=== PATIENT | female | born 1980 | race Caucasian/White ===

== ENCOUNTER 2019-12-04 21:28 | Emergency (ER) | payer OTHER ==
[2019-12-04 21:54] VITALS: BMI 29.2
[2019-12-04] MEDS ORDERED: DEXAMETHASONE LIQUID 0.5 MG/5 ML PO ONE (23:04)
[2019-12-04] MEDS ORDERED: KETOROLAC TROMETHAMINE 30 MG/1 ML VIAL IM ONE (23:04)
--- NOTE | 2019-12-04 23:13 | PDOC ---
History of Present Illness - General Chief Complaint: Cold Symptoms Stated Complaint: FEVER Time Seen by Provider: 12/04/19 23:05 History Source: Patient Exam Limitations: No Limitations - History of Present Illness Initial Comments: 12/04/19 23:06 Patient is a 39 year old female with h/o hypothyoid, HTN c/o sorethroat and fever since yesterday. States the pain is sharp 10/10 worse with swallowing. She took tylneol at 8:30 pm without relief. (+) Coughing with is nonproductive has pain in the back when she coughs. Fever is subjective. No recent travel, no sick contacts. PMD: Dr. Ramos PMHX as above PSOCHX: neg cig, neg etoh, neg drug Fam Hx: noncontributory ALL: NKDA GENERAL/CONSTITUTIONAL: [(+) fever or chills. No weakness. No weight change.] HEAD, EYES, EARS, NOSE AND THROAT: [No change in vision. No ear pain or discharge. No sore throat.] CARDIOVASCULAR: [(+) chest pain (-) shortness of breath.] RESPIRATORY: [(+) cough, (-) wheezing, or hemoptysis.] GASTROINTESTINAL: [No nausea, vomiting, diarrhea or constipation. No rectal bleeding.] GENITOURINARY: [No dysuria, frequency, or change in urination.] MUSCULOSKELETAL: [No joint or muscle swelling or pain. No neck or back pain.] SKIN AND BREASTS: [No rash or easy bruising.] NEUROLOGIC: [No headache, vertigo, loss of consciousness, or loss of sensation.] PSYCHIATRIC: [No depression or anxiety.] ENDOCRINE: [No increased thirst. No abnormal weight change.] HEMATOLOGIC/LYMPHATIC: [No anemia, easy bleeding, or history of blood clots.] ALLERGIC/IMMUNOLOGIC: [No hives or skin allergy. No latex allergy.] GENERAL: [The patient is awake, alert, and fully oriented, in no acute distress.] HEAD: [Normal with no signs of trauma.] EYES: [Pupils equal, round and reactive to light, extraocular movements intact, sclera anicteric, conjunctiva clear.] ENT: [Ears normal, nares patent, no erythema oropharynx clear without exudates. Moist mucous membranes.] NECK: [Normal range of motion, supple without lymphadenopathy, JVD, or masses.] LUNGS: [Breath sounds equal, clear to auscultation bilaterally. No wheezes, and no crackles.] HEART: [Regular rate and rhythm, normal S1 and S2 without murmur, rub.] ABDOMEN: [Soft, nontender, normoactive bowel sounds. No guarding, no rebound. No masses.] EXTREMITIES: [Normal range of motion, no edema. No clubbing or cyanosis. No cords, erythema, or tenderness.] NEUROLOGICAL: [Cranial nerves II through XII grossly intact. Normal speech, normal gait.] PSYCH: [Normal mood, normal affect.] SKIN: [Warm, Dry, normal turgor, no rashes or lesions noted.] Past History - Past Medical History Allergies/Adverse Reactions: Allergies Allergy/AdvReac Type Severity Reaction Status Date / Time No Known Allergies Allergy Verified 12/04/19 21:54 Home Medications: Ambulatory Orders Azithromycin [Zithromax -] 250 mg PO DAILY #4 tablet 12/05/19 COPD: No HTN: Yes - Psycho Social/Smoking Cessation Hx Smoking History: Never smoked Have you smoked in the past 12 months: No Information on smoking cessation initiated: No Hx Alcohol Use: No Drug/Substance Use Hx: No *Physical Exam - Vital Signs Last Vital Signs Temp Pulse Resp BP Pulse Ox 98.1 F 89 18 109/67 100 12/04/19 21:51 12/04/19 21:51 12/04/19 21:51 12/04/19 21:51 12/04/19 21:51 Medical Decision Making - Medical Decision Making 12/04/19 23:06 Patient is a 39 year old female with h/o hypothyoid, HTN c/o sorethroat and fever since yesterday. States the pain is sharp 10/10 worse with swallowing. She took tylneol at 8:30 pm without relief. (+) Coughing which is nonproductive has pain in the back when she coughs. Fever is subjective. No recent travel, no sick contacts. Patient symptoms consistent with a flu will rule out pneumonia. Chest x-ray Influenza swab, strep test Decadron, Toradol IM Reassess Chest x-ray shows right middle lobe infiltrate Since flu is negative we will give Zithromax I discussed the physical exam findings, ancillary test results and final diagnoses with the patient. I answered all of the patient's questions. The patient was satisfied with the care received and felt comfortable with the discharge plan and treatment plan. The Patient agrees to follow up with the primary care physician within 24-72 hours. Discharge - Discharge Information Problems reviewed: Yes Clinical Impression/Diagnosis: Pneumonia Qualifiers: Pneumonia type: due to unspecified organism Laterality: right Lung location: middle lobe of lung Qualified Code(s): J18.9 - Pneumonia, unspecified organism Condition: Stable Disposition: HOME - Additional Discharge Information Prescriptions: Azithromycin [Zithromax -] 250 mg PO DAILY #4 tablet - Follow up/Referral Referrals: ON STAFF,NOT [Primary Care Provider] - - Patient Discharge Instructions Patient Printed Discharge Instructions: DI for Pneumonia -- Adult Additional Instructions: Your Discharge Instructions: You must call primary care physician within 24 hours to arrange follow-up. Return to the Emergency Department with any new, persistent or worsening symptoms, for fever, chills, SOB, dizziness or any other concerning changes that may occur. If you can have concerns for the coronavirus you should call the [facility] with your complaint they will do your testing at home. - Post Discharge Activity Work/Back to School Note: Back to Work
[2019-12-04] MEDS ORDERED: KETOROLAC TROMETHAMINE 30 MG/1 ML VIAL ONE (23:27)
[2019-12-04] MEDS ORDERED: DEXAMETHASONE SOD PHOSPHATE 10 MG/1 ML VIAL ONE (23:27)
[2019-12-05] MEDS ORDERED: AZITHROMYCIN 500 MG TABLET PO ONE (00:35)
[2019-12-05] MEDS ORDERED: AZITHROMYCIN 250 MG TABLET ONE (00:53)
[2019-12-05 01:45] VITALS: BP 107/63; PULSE 86; TEMP 97.8
== END 2019-12-05 00:55 | disposition home or self-care (01) ==
LOC: JER 21:28
PROC: 3E0233Z Introduction of Anti-inflammatory into Muscle, Percutaneous Approach (ICD-10-PCS; principal; 2019-12-04)
DX: J18.9 Pneumonia, unspecified organism (principal); E03.9 Hypothyroidism, unspecified; I10 Essential (primary) hypertension
CPT/HCPCS: 71046-TC-FY; 87070; 87804; 87880; 99284-25